=== PATIENT | male | born 1950 | race Caucasian/White ===

== ENCOUNTER → 2016-06-01 | Outpatient (CLI) | payer MEDICARE ==
[2016-03-16 11:00] VITALS: BP 131/86
[~2016-06-01] MED LIST: AMLO1TAB PO; ASPI325T4 PO; CIPR500T PO; GADOBUTROL 10 MMOL/10 ML VIAL IV ONE; HYDR-2678 PO; HYDR200T5 PO; LEVE500T56 PO; MECL25TA3 PO; METO50TA2 PO; NAPR1TAB21 PO; QUIN40TA7 PO; TRAZ100T12 PO; [UNRECOGNIZED DRUG - CODE] PO
--- NOTE | 2016-06-01 13:15 | KCIC ---
BRAIN WO/W CONTRAST Indication: Reason For Study Reason: FOLLOW UP BRAIN MASS WITH SURGERY / Spl. Instructions: Prev CT and MR sent to PACS. 8cc Gadavist / History: COMPARISON: MRI brain from 03/02/2016 TECHNIQUE: Axial diffusion weighted imaging was obtained. Additional sagittal T1, axial T1, axial FLAIR, and axial T2 weighted imaging of the brain was also performed. Postcontrast T1 weighted imaging was also performed after intravenous administration of gadolinium based contrast. FINDINGS: There are postsurgical changes of a suboccipital craniotomy. 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 There is however, some residual enhancement is noted along the inferior margin of the operative bed. There also some residual blood products along the margin of the operative bed as well. There is no surrounding vasogenic edema. No new enhancing lesion is identified. No mass effect upon the 4th ventricle. No hydrocephalus. Arterial flow voids at the level of the skull base are maintained. Globes and orbits are within normal limits. Paranasal sinuses and mastoid air cells are clear. Impression: Postsurgical changes from a suboccipital craniotomy and resection of the right cerebellar mass. There is some residual enhancement along the inferior margin of the operative bed. Continued followup is recommended. No mass effect or abnormal edema. Electronically signed by: Reji Spain (Jun 01, 2016 13:13:17)
== END | disposition home or self-care (01) ==
LOC: KCIC MRI 12:07
PROVIDERS: ATTEND Neurological Surgery
DX: G93.9 Disorder of brain, unspecified (principal); I10 Essential (primary) hypertension; Z79.01 Long term (current) use of anticoagulants
CPT/HCPCS: 70553; A9585

== ENCOUNTER 2016-07-01 11:21 | Emergency (ER) | payer MEDICARE ==
[~2016-07-01] VITALS: Ht 172.7 cm; Wt 83.9 kg
[~2016-07-01 11:21] MED LIST changes: -GADOBUTROL 10 MMOL/10 ML VIAL IV ONE
[2016-07-01] MEDS ORDERED: IV NORMAL SALINE 1000ML BAG 1,000 ML IV SCH (11:52)
--- NOTE | 2016-07-01 11:54 | RAD ---
Examination: CT head without contrast History: History of code stroke. Comparison: MRI brain from 06/01/2016 PQRS Compliance Statement: One or more of the following individualized dose reduction techniques were utilized for this examination: 1. Automated exposure control 2. Adjustment of the mA and/or kV according to patient size 3. Use of iterative reconstruction technique Findings: There is no evidence of midline shift. There is no acute intracranial bleed or extra axial fluid collection identified. Linear hypodensity identified in the right cerebellum similar to prior MRI likely surgical changes of suboccipital craniotomy and resection of right-sided cerebellar mass identified. Mild bilateral periventricular white matter hypodensities likely chronic small vessel ischemic disease. The visualized lateral ventricle, third ventricle, fourth ventricle are appropriate for age. The visualized paranasal sinuses, mastoid air cells are clear Impression: Prior changes of suboccipital craniotomy and resection of right cerebellar mass. Hypodensity identified in the right cerebellum likely prior surgical changes. Otherwise no acute intracranial findings. Report was called to ER at time dictation.
[2016-07-01] MEDS ORDERED: hydrALAZINE 20 MG/ML VIAL. IVP ONE (12:00)
--- NOTE | 2016-07-01 12:03 | PHYS DOC ---
Past Medical History Past Medical History: Hypertension, Kidney Stone, Other Additional Past Medical Histor: Rheumatoid arthritis, brain tumor Past Surgical History: Other Additional Past Surgical Histo: brain tumor Alcohol Use: None Drug Use: None Adult General Chief Complaint Chief Complaint: NEURO SYMPTOMS/DEFICITS HPI HPI Patient is a 66 year old male who presents with complaint of slurring of speech and confusion started approximately 10:45 AM. The patient was coming to [facility] for continued therapy. 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 Patient states that he has had residual problems with right hand shaking and balance problems ever since. The patient states that he currently feels better right now. The patient' s states that his speech still seems to be altered from his baseline, stating that "he seems sleepy when he talks." Upon arrival to physical therapy, the patient was ordered to come to the emergency department for evaluation by the therapist due to his slurring of speech. The patient denies any other associated symptoms at this time. Patient states that he feels anxious and thinks that this may be playing a role in his symptoms. Review of Systems Review of Systems Constitutional: Denies fever or chills [] Eyes: Denies change in visual acuity, redness, or eye pain [] HENT: Denies nasal congestion or sore throat [] Respiratory: Denies cough or shortness of breath [] Cardiovascular: Denies chest pain or edema [] GI: Denies abdominal pain, nausea, vomiting, bloody stools or diarrhea [] : Denies dysuria or hematuria [] Musculoskeletal: Denies back pain or joint pain [] Integument: Denies rash or skin lesions [] Neurologic: Slurring of speech, tingling of scalp [] Current Medications Current Medications Current Medications Medications (Trade) Dose Ordered Sig/Eriberto Start Time Stop Time Status Last Admin Dose Admin Hydralazine HCl (Apresoline) 10 mg 1X ONCE 07/01/16 12:00 07/01/16 12:01 DC Sodium Chloride (Iv Sodium Chloride 0.9% 1000ml Bag) 1,000 ml @ 100 mls/hr Q10H 07/01/16 11:52 07/01/16 13:50 DC Allergies Allergies Allergies Coded Allergies Type Severity Reaction Last Updated Verified No Known Drug Allergies 11/26/14 No Physical Exam Physical Exam Constitutional: Alert, afebrile, no acute distress. [] HENT: Normocephalic, atraumatic, bilateral external ears normal, oropharynx moist, no oral exudates, nose normal. [] Eyes: PERRLA, EOMI, conjunctiva normal, no discharge. [] Neck: Normal range of motion, no tenderness, supple, no stridor. [] Cardiovascular:Heart rate regular rhythm, no murmur [] Lungs & Thorax: Bilateral breath sounds clear to auscultation [] Abdomen: Bowel sounds normal, soft, no tenderness, no masses, no pulsatile masses. [] Skin: Warm, dry, no erythema, no rash. [] Back: No tenderness, no CVA tenderness. [] Extremities: No tenderness, no cyanosis, no clubbing, ROM intact, no edema. [] Neurologic: Alert and oriented X 3, normal motor function, normal sensory function, intention tremor in the right upper extremity. [] Current Patient Data Vital Signs Vital Signs Date Time Temp Pulse Resp B/P Pulse Ox O2 Delivery O2 Flow Rate FiO2 07/01/16 13:32 66 18 146/91 96 Room Air 07/01/16 11:41 98.4 98.4 Lab Values Laboratory Tests Test 07/01/16 11:51 07/01/16 12:30 07/01/16 12:50 Glucose (Fingerstick) 137mg/dL (70-99) H White Blood Count 5.7x10^3/uL (4.0-11.0) Red Blood Count 5.40x10^6/uL (4.30-5.70) Hemoglobin 14.7g/dL (13.0-17.5) Hematocrit 44.0% (39.0-53.0) Mean Corpuscular Volume 82fL (79-100) Mean Corpuscular Hemoglobin 27pg (25-35) Mean Corpuscular Hemoglobin Concent 33g/dL (31-37) Red Cell Distribution Width 13.9% (11.5-14.5) Platelet Count 157x10^3/uL (140-400) Neutrophils (%) (Auto) 49% (31-73) Lymphocytes (%) (Auto) 35% (24-48) Monocytes (%) (Auto) 12% (0-9) H Eosinophils (%) (Auto) 3% (0-3) Basophils (%) (Auto) 1% (0-3) Neutrophils # (Auto) 2.8x10^3uL (1.8-7.7) Lymphocytes # (Auto) 2.0x10^3/uL (1.0-4.8) Monocytes # (Auto) 0.7x10^3/uL (0.0-1.1) Eosinophils # (Auto) 0.2x10^3/uL (0.0-0.7) Basophils # (Auto) 0.1x10^3/uL (0.0-0.2) Prothrombin Time 12.5SEC (11.7-14.0) Prothrombin Time INR 1.0 (0.8-1.1) PTT 27SEC (24-38) Sodium Level 145mmol/L (136-145) Potassium Level 4.0mmol/L (3.5-5.1) Chloride Level 108mmol/L (98-107) H Carbon Dioxide Level 27mmol/L (21-32) Anion Gap 10 (6-14) Blood Urea Nitrogen 16mg/dL (8-26) Creatinine 0.8mg/dL (0.7-1.3) Estimated GFR (Cockcroft-Gault) 97.0 BUN/Creatinine Ratio 20 (6-20) Glucose Level 141mg/dL (70-99) H Calcium Level 9.2mg/dL (8.5-10.1) Magnesium Level 1.9mg/dL (1.8-2.4) Total Bilirubin 0.5mg/dL (0.2-1.0) Aspartate Amino Transferase (AST) 29U/L (15-37) Alanine Aminotransferase (ALT) 42U/L (16-63) Alkaline Phosphatase 108U/L (46-116) Total Protein 6.6g/dL (6.4-8.2) Albumin 3.9g/dL (3.4-5.0) Albumin/Globulin Ratio 1.4 (1.0-1.7) Urine Collection Type Unknown Urine Color Yellow Urine Clarity Clear Urine pH 6.5 Urine Specific [place] 1.010 Urine Protein Negativemg/dL (NEG-TRACE) Urine Glucose (UA) Negativemg/dL (NEG) Urine Ketones (Stick) Negativemg/dL (NEG) Urine Blood Negative (NEG) Urine Nitrite Negative (NEG) Urine Bilirubin Negative (NEG) Urine Urobilinogen Dipstick 0.2mg/dL (0.2 mg/dL) Urine Leukocyte Esterase Negative (NEG) Urine RBC 0/HPF (0-2) Urine WBC 0/HPF (0-4) Urine Bacteria 0/HPF (0-FEW) Urine Opiates Screen Neg (NEG) Urine Methadone Screen Neg (NEG) Urine Barbiturates Neg (NEG) Urine Phencyclidine Screen Neg (NEG) Urine Amphetamine/Methamphetamine Neg (NEG) Urine Benzodiazepines Screen Neg (NEG) Urine Cocaine Screen Neg (NEG) Urine Cannabinoids Screen Neg (NEG) Urine Ethyl Alcohol Neg (NEG) Laboratory Tests 07/01/16 12:30 Laboratory Tests 07/01/16 12:30 EKG EKG Interpreted by me: Heart rate 69, sinus rhythm, normal intervals, normal axis, no acute ST/T-wave abnormalities present [] Radiology/Procedures Radiology/Procedures [facility] [address] [place] [address] IMAGING REPORT Signed PATIENT: FREDY ALEXANDER ACCOUNT: [id number] : 1950 LOCATION: ER AGE: 66 SEX: M EXAM STATUS: REG ER ORD. PHYSICIAN: CLEMENCIA MARTINES MD REASON: code stroke PROCEDURE: HEAD WO CONTRAST Examination: CT head without contrast History: History of code stroke. Comparison: MRI brain from 06/01/2016 PQRS Compliance Statement: One or more of the following individualized dose reduction techniques were utilized for this examination: 1. Automated exposure control 2. Adjustment of the mA and/or kV according to patient size 3. Use of iterative reconstruction technique Findings: There is no evidence of midline shift. There is no acute intracranial bleed or extra axial fluid collection identified. Linear hypodensity identified in the right cerebellum similar to prior MRI likely surgical changes of suboccipital craniotomy and resection of right-sided cerebellar mass identified. Mild bilateral periventricular white matter hypodensities likely chronic small vessel ischemic disease. The visualized lateral ventricle, third ventricle, fourth ventricle are appropriate for age. The visualized paranasal sinuses, mastoid air cells are clear Impression: Prior changes of suboccipital craniotomy and resection of right cerebellar mass. Hypodensity identified in the right cerebellum likely prior surgical changes. Otherwise no acute intracranial findings. Report was called to ER at time dictation. DICTATED and SIGNED BY: MAMTA SHIELDS MD DATE: 07/01/16 1140 CC: CLEMENCIA MARTINES MD; ASHOK MATTHEWS MD ~ [] Course & Med Decision Making Course & Med Decision Making Pertinent Labs and Imaging studies reviewed. (See chart for details) Patient's NIH score was 0 in the emergency department. Patient was observed with no further episodes observed. The patient's head CT showed no acute findings and patient's lab work is unremarkable. The patient's symptoms are likely sequelae from recent brain surgery. I spoke with Dr. Song who agreed that this was a reasonable assessment. He recommended that the patient be on 81 mg aspirin daily and recommended follow-up in his clinic in the next 2 weeks. Spoke with the patient regarding plan of care and he is in agreement at this time. Advised return to the emergency department for any worsening symptoms. Patient voiced understanding and in agreement with treatment plan. Dragon Disclaimer Dragon Disclaimer This electronic medical record was generated, in whole or in part, using a voice recognition dictation system. Departure Departure Impression: Primary Impression: Status post craniectomy Additional Impression: Confusion Disposition: 01 HOME, SELF-CARE Condition: IMPROVED Referrals: ASHOK MATTHEWS MD (PCP) JORGE SONG MD Patient Instructions: Confusion Additional Instructions: Follow-up with Dr. Song in the next 2 weeks. Return to the emergency department for any worsening symptoms. Problem Qualifiers CLEMENCIA MARTINES MD Jul 01, 2016 12:03
--- NOTE | 2016-07-01 12:17 | RAD ---
Examination: Single frontal of the chest History: History of slurred speech, lightheadedness Comparison: None available Findings: The cardiomediastinal silhouette grossly appears unremarkable. There is no acute infiltrate or visualized pneumothorax identified. Impression No acute cardiopulmonary findings.
[2016-07-01 12:48] LABS: BASO # 0.1 x10^3/uL (0.0-0.2); BASO % 1 % (0-3); EOS % 3 % (0-3); HEMOGLOBIN 14.7 g/dL (13.0-17.5); LYMPH % 35 % (24-48); MEAN CORPUSCULAR HEMOGLOBIN 27 pg (25-35); MEAN CORPUSCULAR HGB CONC 33 g/dL (31-37); MEAN CORPUSCULAR VOLUME 82 fL (79-100); MONO % 12 % (0-9); NEUT % 49 % (31-73); PLATELET COUNT 157 x10^3/uL (140-400); RED CELL DISTRIBUTION WIDTH 13.9 % (11.5-14.5); WHITE BLOOD COUNT 5.7 x10^3/uL (4.0-11.0)
[2016-07-01 12:57] LABS: PROTHROMBIN TIME PATIENT 12.5 SEC (11.7-14.0)
[2016-07-01 13:03] LABS: BILIRUBIN,URINE NEGATIVE (NEG); GLUCOSE,URINE NEGATIVE (NEG); NITRITE,URINE NEGATIVE (NEG); PH,URINE 6.5; PROTEIN,URINE NEGATIVE (NEG-TRACE); UROBILINOGEN,URINE 0.2 mg/dL (0.2 mg/dL)
[2016-07-01 13:09] LABS: CALCIUM 9.2 mg/dL (8.5-10.1); CREATININE 0.8 mg/dL (0.7-1.3)
[2016-07-01 13:11] LABS: BACTERIA,URINE 0 /HPF (0-FEW); RBC,URINE 0 /HPF (0-2); WBC,URINE 0 /HPF (0-4)
[2016-07-01 13:12] LABS: ALBUMIN 3.9 g/dL (3.4-5.0); ALBUMIN/GLOBULIN RATIO 1.4 (1.0-1.7); MAGNESIUM 1.9 mg/dL (1.8-2.4); TOTAL BILIRUBIN 0.5 mg/dL (0.2-1.0); TOTAL PROTEIN 6.6 g/dL (6.4-8.2)
[2016-07-01 13:19] LABS: BARBITURATES NEG (NEG); BENZODIAZEPINES NEG (NEG); CANNABINOIDS NEG (NEG); COCAINE NEG (NEG); METHADONE NEG (NEG); OPIATES NEG (NEG); PHENCYCLIDINE NEG (NEG)
[2016-07-01 13:20] LABS: ETHANOL, URINE NEG (NEG)
[2016-07-01 13:32] VITALS: BP 146/91
--- NOTE | 2016-07-02 06:45 | EKG ---
[facility] [address] [place] [address] Test Date: 2016-07-01 Test Time: 11:15:58 Pat Name: FREDY ALEXANDER Department: Room: Gender: M Egyptologist: : 1950 Requested By: CLEMENCIA MARTINES Order Number: [id number] Reading MD: Corrina Martinez Measurements Intervals [place] Rate: 69 P: 45 MD: 154 QRS: 1 QRSD: 94 T: 26 QT: 420 QTc: 452 Interpretive Statements SINUS RHYTHM QRS(T) CONTOUR ABNORMALITY CONSIDER INFERIOR MYOCARDIAL DAMAGE POSSIBLY ABNORMAL ECG RI6.01 Compared to ECG 03/05/2016 11:45:04 No significant changes Electronically Signed On 07-03-2016 20:01:27 CDT by Corrina Martinez
== END 2016-07-01 13:50 | disposition home or self-care (01) ==
LOC: ER 11:21
DX: R41.0 Disorientation, unspecified (principal); R47.81 Slurred speech; M06.9 Rheumatoid arthritis, unspecified; I10 Essential (primary) hypertension; Z98.890 Other specified postprocedural states; Z87.442 Personal history of urinary calculi
CPT/HCPCS: 36415; 70450; 71010; 80053; 80305; 81001; 82947; 83735; 85027; 85610; 85730; 93005; G0481; 99285-25

== ENCOUNTER → 2016-08-26 | Outpatient (CLI) | payer BC, MEDICARE ==
[~2016-08-26] MED LIST changes: +GADOBUTROL 10 MMOL/10 ML VIAL IV ONE
[2016-08-26 14:57] LABS: CREATININE 0.9 mg/dL (0.7-1.3); GFR 84.7
--- NOTE | 2016-08-26 16:14 | RAD ---
PROCEDURE MRI brain without and with contrast. HISTORY Brain mass, craniotomy TECHNIQUE Multiplanar, multi sequential pre and post contrast MR imaging was performed of the brain. Contrast: 8 cc Gadavist COMPARISON 06/01/2016 FINDINGS As seen previously, there has been suboccipital craniotomy. There is again resection cavity of the right cerebellum. Previously seen enhancement at the margin of resection cavity has mostly resolved, mild residual more linear appearing enhancement at the superior margin adjacent to the tentorium. No new focus of enhancement is identified in this area. There is no new cystic signal abnormality in this region. Previously seen FLAIR hyperintense signal abnormality of the right cerebellar resection cavity has resolved. Degree of hemosiderin deposition about the right cerebellar resection cavity is unchanged, also small focus of hemosiderin deposition of the right mid brain unchanged. There is no new significant edema. Ventricular size is stable, within normal limits. There is small right parietal developmental venous anomaly as seen previously. There is no midline shift or new extra-axial fluid collection. There is no evidence of a recent infarct or cytotoxic edema. Cerebellar tonsils are normal in location. There is preservation of marrow signal of the clivus. There is no significant abnormality of the pineal gland or pituitary gland. There is preservation of the major arterial intracranial flow voids at the skull base, small right vertebral artery flow void. Mastoid air cells are aerated. There is patchy minimal ethmoid air cell mucosal thickening. IMPRESSION 1. There is again resection cavity of the right cerebellum, previously seen enhancement mostly resolved other than mild residual linear appearing enhancement at the superior margin of the resection cavity near tentorium most likely on a post surgical basis. Degree of associated hemosiderin deposition is similar. No new abnormal intracranial enhancement is identified. Electronically signed by: Jean Holt MD (August 26, 2016 16:12:50)
== END | disposition home or self-care (01) ==
LOC: MRI 14:11
PROVIDERS: ATTEND Neurological Surgery
DX: G93.9 Disorder of brain, unspecified (principal)
CPT/HCPCS: 36415; 70553; 82565

== ENCOUNTER → 2017-01-05 | Outpatient (CLI) | payer BC ==
[~2017-01-05] MED LIST changes: -ASPI325T4 PO; +ASPI325T8 PO; -GADOBUTROL 10 MMOL/10 ML VIAL IV ONE; +QUIN40TA16 PO; -QUIN40TA7 PO; +[UNRECOGNIZED DRUG - CODE] PO; -[UNRECOGNIZED DRUG - CODE] PO
--- NOTE | 2017-01-05 14:34 | KCIC ---
Examination: MRI of the left shoulder without contrast HISTORY: History of left shoulder pain for a few months. COMPARISON: None available TECHNIQUE: Multiplanar, multisequence MR imaging of the left shoulder performed without contrast. FINDINGS: Long head of the biceps tendon is within the bicipital groove. The attachment of the long head of biceps tendon to the superior labral anchor grossly appears intact. The attachment of the subscapularis tendon grossly appears intact. There is mild increased signal identified in the subscapularis tendon likely mild tendinosis. There is small amount of fluid identified in the subacromial subdeltoid bursa. There is probably a small focus of full-thickness tear of the supraspinatus tendon in the conjoined portion posteriorly best visualized on series 7 image #13 and series 8 image #6, measuring about 3 mm in AP dimension. There is bursal sided fraying of the supraspinatus tendon anteriorly. Examination is somewhat limited due to mild motion artifact. There is moderate tendinosis of the supraspinatus, infraspinatus tendons. The attachment of the teres minor tendon grossly appears intact. There is mild increased signal identified throughout the labrum likely secondary to degeneration. Moderate acromioclavicular joint osteoarthrosis. The acromion is type II. The muscle bulk grossly appears unremarkable. Moderate degenerative changes in the glenohumeral joint. Mild obliteration of fat in the rotator interval. IMPRESSION: 1. Small amount of fluid identified in the subacromial subdeltoid bursa probably small focus of full-thickness tear of the supraspinatus tendon possibly in the conjoined portion. There is bursal sided fraying of the supraspinatus tendon anteriorly. 2. Tendinosis of supraspinatus and intraspinous tendons. 3. Moderate degenerative changes acromioclavicular joint and the glenohumeral joint. 4. Some obvious of fat in the rotator interval. Correlate for adhesive capsulitis. Electronically signed by: Casey Salas MD (01/05/2017 2:28 PM) [id number]
== END | disposition home or self-care (01) ==
LOC: KCIC MRI 13:41
PROVIDERS: ATTEND Physician Assistant Surgical
DX: M19.012 Primary osteoarthritis, left shoulder (principal)
CPT/HCPCS: 73221

== ENCOUNTER → 2017-07-05 | Outpatient (CLI) | payer BC ==
[2017-07-05 16:33] LABS: ADD MAN DIFF? NO
[2017-07-05 16:41] LABS: BASO # 0.1 x10^3/uL (0.0-0.2); BASO % 1 % (0-3); EOS # 0.3 x10^3/uL (0.0-0.7); EOS % 4 % (0-3); HEMATOCRIT 41.6 % (39.0-53.0); HEMOGLOBIN 14.1 g/dL (13.0-17.5); LYMPH # 2.2 x10^3/uL (1.0-4.8); LYMPH % 29 % (24-48); MEAN CORPUSCULAR HEMOGLOBIN 28 pg (25-35); MEAN CORPUSCULAR HGB CONC 34 g/dL (31-37); MEAN CORPUSCULAR VOLUME 82 fL (79-100); MONO # 0.8 x10^3/uL (0.0-1.1); MONO % 11 % (0-9); NEUT # 4.1 x10^3uL (1.8-7.7); NEUT % 55 % (31-73); PLATELET COUNT 186 x10^3/uL (140-400); RED BLOOD COUNT 5.05 x10^6/uL (4.30-5.70); RED CELL DISTRIBUTION WIDTH 16.1 % (11.5-14.5); WHITE BLOOD COUNT 7.4 x10^3/uL (4.0-11.0)
[2017-07-05 16:44] LABS: BILIRUBIN,URINE NEGATIVE (NEG); CLARITY,URINE CLEAR; COLOR,URINE YELLOW; GLUCOSE,URINE 100 mg/dL (NEG); NITRITE,URINE NEGATIVE (NEG); PH,URINE 5.5; PROTEIN,URINE NEGATIVE (NEG-TRACE)
[2017-07-05 16:50] LABS: PARTIAL THROMBOPLASTIN TIME 25 SEC (24-38)
[2017-07-05 16:51] LABS: ANION GAP 13 (6-14); BLOOD UREA NITROGEN 12 mg/dL (8-26); CALCIUM 8.8 mg/dL (8.5-10.1); CARBON DIOXIDE 28 mmol/L (21-32); CHLORIDE 105 mmol/L (98-107); CREATININE 1.1 mg/dL (0.7-1.3); GLUCOSE 153 mg/dL (70-99); POTASSIUM 3.9 mmol/L (3.5-5.1); SODIUM 146 mmol/L (136-145)
[2017-07-05 17:00] LABS: BACTERIA,URINE 0 /HPF (0-FEW); RBC,URINE 0 /HPF (0-2); SQUAMOUS EPITHELIAL CELL,UR OCC /LPF; WBC,URINE OCC /HPF (0-4)
[2017-07-05 18:23] LABS: SEDIMENTATION RATE 1 (0-15)
== END | disposition home or self-care (01) ==
LOC: LAB 16:15
DX: M25.512 Pain in left shoulder (principal); I11.9 Hypertensive heart disease without heart failure; E78.5 Hyperlipidemia, unspecified; R79.89 Other specified abnormal findings of blood chemistry; Z98.890 Other specified postprocedural states; Z79.899 Other long term (current) drug therapy
CPT/HCPCS: 36415; 80048; 81001; 82306; 85025; 85610; 85651; 85730; 86141

== ENCOUNTER → 2018-03-06 | Outpatient (CLI) | payer BC ==
[~2018-03-06] MED LIST changes: +GADOBUTROL 10 MMOL/10 ML VIAL IV ONE; -METO50TA2 PO; +METO50TA6 PO; +TRAZ-86 PO; -TRAZ100T12 PO
--- NOTE | 2018-03-06 14:17 | KCIC ---
MRI Brain with and without contrast History: Postop neoplasm of brain, occasional unsteady gait Technique: Multiplanar, multi sequential pre and postcontrast MR imaging was performed of the brain. Comparison: August 26, 2016 Findings: There again has been suboccipital craniotomy, resection cavity of the right posterior fossa involving cerebellum. There is associated minimal T2 and FLAIR hyperintense signal overall similar. Some subtle enhancement at the anterior medial most margin of the resection cavity axial image 8 series 9 is similar, also some thin enhancement at the superior margin unchanged. There is peripheral rim of decreased signal on the gradient echo sequence compatible with hemosiderin deposition. There is again right parietal developmental venous anomaly. There is no new intra-axial mass effect, midline shift, extra-axial fluid collection. Ventricular size is stable, within normal limits. There is no evidence of recent infarct. There is preservation of the major arterial flow voids at the skull base. Mastoid air cells are aerated. There is increased mild ethmoid air cell mucosal thickening greater anteriorly. Impression: 1. There are stable postoperative findings of the right cerebellum, some mild adjacent mostly linear enhance and also hemosiderin deposition. There is no new abnormal intracranial enhancement. Electronically signed by: Hector Holt MD (03/06/2018 2:13 PM) [id number]
== END | disposition home or self-care (01) ==
LOC: KCIC MRI 10:39
PROVIDERS: ATTEND Neurological Surgery
DX: D49.6 Neoplasm of unspecified behavior of brain (principal); I10 Essential (primary) hypertension; Z98.890 Other specified postprocedural states
CPT/HCPCS: 70553; 82565; A9585